=== PATIENT | female | born 2000 | race Caucasian/White ===

== ENCOUNTER 2018-04-09 21:09 | Emergency (ER) | payer OTHER ==
[2018-04-09 21:17] VITALS: BP 134/94; PULSE 108; TEMP 98.5; BMI 20.9
--- NOTE | 2018-04-09 21:22 | PDOC ---
History of Present Illness - General History Source: Patient Exam Limitations: No Limitations - History of Present Illness Initial Comments: 04/09/18 22:10 The patient is a 17 year old female, with no significant PMH, who presents to the emergency department complaining of a dry cough that began several days ago. The patient endorses associated symptoms left side back pain, nasal congestion, upper abdominal wall and lower chest wall muscle discomfort. The patient denies chest pain, shortness of breath, headache and dizziness.Denies fever, chills, nausea, vomit, diarrhea and constipation. Denies dysuria, frequency, urgency and hematuria. PAST MEDICAL HISTORY: no significant history PAST SURGICAL HISTORY: no significant history FAMILY HISTORY: no pertinent history SOCIAL HISTORY: Pt lives with family and is employed. MEDICATIONS: reviewed ALLERGIES: As per nursing notes Adult ROS General: No fevers or chills, no weakness, no weight loss HEENT: No change in vision. No sore throat,. No ear pain CardioVascular: No chest pain or shortness of breath Respiratory:+ cough. +Lower chest wall discomfort. No wheezing. Gastrointestinal: no nausea, vomiting, diarrhea or constipation, No rectal bleeding Genitourinary: +upper abdominal wall discomfort. No dysuria, hematuria, or frequency Musculoskeletal: No joint or muscle pain or swelling Neurologic: No headache, vertigo, dizziness or loss of consciousness Psychiatric: nor depression Skin: No rashes or easy bruising Endocrine: no increased thirst or abnormal weight change Allergic: no skin or latex allergy All other systems reviewed and normal Adult Exam: General: Well-nourished well-developed individual, no acute distress Throat: Normal, tonsils normal, no erythema or exudate Neck: Supple, no meningeal signs, no lymphadenopathy Chest: Nontender to palpation Cardiac: S1-S2 normal, regular rate and rhythm, no murmurs rubs or gallops Respiratory:+Dry cough noted during evaluation. Lungs clear to auscultation bilateral Abdomen: Soft, nondistended, normal bowel sounds, nontender to palpation diffusely Extremities: Warm, dry, no cyanosis, clubbing, or edema Skin: No rashes Neuro: Alert and oriented x3, nonfocal exam, grossly intact, normal gait Psych: Normal mood and affect <King Cruz - Last Filed: 04/09/18 22:10> - General History Source: Patient Exam Limitations: No Limitations - History of Present Illness Initial Comments: 04/09/18 21:41 A portion of this note was documented by scribe services under my direction. I have reviewed the details of the note, within reason, and agree with the documentation with the following case summary and management plan written by me. Patient treated in the ED. Nursing notes are reviewed and incorporated into the medical decision-making. Vital signs reviewed. Assessment and plan: This is a 17-year-old female who comes in complaining of dry cough times several days. Patient is also complaining of associated upper abdominal wall and lower chest wall muscle discomfort. Patient otherwise denies any nausea, vomiting, diarrhea. Patient denies any shortness of breath. Patient denies any fevers or chills. We will obtain urinalysis as patient did complain of some low back pain to rule out a urinary tract infection. Recommended the patient get a whole room humidifier, use [id number] cough drops, or alternately honey and lemon. Patient discharged will follow-up with her primary care doctor <Janneth Moreno I - Last Filed: 04/09/18 22:18> - General Chief Complaint: Respiratory Stated Complaint: COUGH, SORE THROAT, 4 MONTHS Time Seen by Provider: 04/09/18 21:18 Past History <King Cruz - Last Filed: 04/09/18 22:10> - Past Medical History COPD: No Other medical history: DENIES - Suicide/Smoking/Psychosocial Hx Smoking History: Never smoked Have you smoked in the past 12 months: No Information on smoking cessation initiated: No Hx Alcohol Use: No Drug/Substance Use Hx: No <Janneth Moreno I - Last Filed: 04/09/18 22:18> - Past Medical History Allergies/Adverse Reactions: Allergies Allergy/AdvReac Type Severity Reaction Status Date / Time No Known Allergies Allergy Verified 04/09/18 21:13 Home Medications: Ambulatory Orders NK [No Known Home Medication] 04/09/18 *Physical Exam - Vital Signs Last Vital Signs Temp Pulse Resp BP Pulse Ox 98.5 F 108 H 18 134/94 100 04/09/18 21:14 04/09/18 21:14 04/09/18 21:14 04/09/18 21:14 04/09/18 21:14 <King Cruz - Last Filed: 04/09/18 22:10> - Vital Signs Last Vital Signs Temp Pulse Resp BP Pulse Ox 98.5 F 108 H 18 134/94 100 04/09/18 21:14 04/09/18 21:14 04/09/18 21:14 04/09/18 21:14 04/09/18 21:14 <Janneth Moreno I - Last Filed: 04/09/18 22:18> Moderate Sedation - Procedure Monitoring Vital Signs: Procedure Monitoring Vital Signs Temperature 98.5 F 04/09/18 21:14 Pulse Rate 108 H 04/09/18 21:14 Respiratory Rate 18 04/09/18 21:14 Blood Pressure 134/94 04/09/18 21:14 O2 Sat by Pulse Oximetry (%) 100 04/09/18 21:14 <King Cruz - Last Filed: 04/09/18 22:10> - Procedure Monitoring Vital Signs: Procedure Monitoring Vital Signs Temperature 98.5 F 04/09/18 21:14 Pulse Rate 108 H 04/09/18 21:14 Respiratory Rate 18 04/09/18 21:14 Blood Pressure 134/94 04/09/18 21:14 O2 Sat by Pulse Oximetry (%) 100 04/09/18 21:14 <Janneth Moreno I - Last Filed: 04/09/18 22:18> ED Treatment Course - ADDITIONAL ORDERS Additional order review: Laboratory Results 04/09/18 21:45 Urine Color Yellow Urine Appearance Clear Urine pH 6.5 Ur Specific [place] 1.025 Urine Protein Negative Urine Glucose (UA) Negative Urine Ketones Trace Urine Blood Negative Urine Nitrite Negative Urine Bilirubin Negative Urine Urobilinogen 0.2 Ur Leukocyte Esterase Negative <King Cruz - Last Filed: 04/09/18 22:10> *DC/Admit/Observation/Transfer - Attestations Scribe Attestion: 04/09/18 22:11 Documentation prepared by King Cruz, acting as medical assistant for Janneth Moreno MD. <King Cruz - Last Filed: 04/09/18 22:10> - Discharge Dispostion Decision to Admit order: No <Janneth Moreno I - Last Filed: 04/09/18 22:18> Diagnosis at time of Disposition: Viral URI with cough - Discharge Dispostion Disposition: HOME Condition at time of disposition: Stable - Patient Instructions Additional Instructions: Take tylenol as needed for muscle discomfort from coughing. Over the counter cough drops that contain cepacol are safe in . Purchase a whole room humidifier and use it to humidify the air. Your urine had some ketones in it which indicated you need to drink more fluids. Return to the emergency department immediately with ANY new, persistent or worsening symptoms. Continue any medications as previously prescribed by your physician. You should follow up with your primary doctor as soon as possible regarding today's emergency department visit. . Please make sure your doctor reviews the results of your emergency evaluation. Thank you for coming to the Emergency Department today for your care. It was a pleasure to see you today. Please note that your evaluation is INCOMPLETE until you follow-up with your doctor.
[2018-04-09 21:49] LABS: PH,URINE 6.5 (4.5-8); URINE APPEARANCE Clear; URINE BILIRUBIN Negative (NEGATIVE); URINE COLOR Yellow; URINE GLUCOSE (UA) Negative (NEGATIVE); URINE KETONE Trace (NEGATIVE); URINE LEUK ESTERASE Negative (NEGATIVE); URINE NITRITE Negative (NEGATIVE); URINE PROTEIN Negative (NEGATIVE); URINE UROBILINOGEN 0.2 (0.2-1.0)
== END 2018-04-09 22:24 | disposition home or self-care (01) ==
LOC: FER 21:09
DX: O26.892 Other specified pregnancy related conditions, second trimester (principal); Z3A.00 Weeks of gestation of pregnancy not specified; J06.9 Acute upper respiratory infection, unspecified; R05 Cough
CPT/HCPCS: 81003; 87086; 99281-25